=== PATIENT | female | born 1980 | race Caucasian/White ===

== ENCOUNTER 2018-02-24 23:45 | Emergency (ER) | payer SELFPAY ==
[~2018-02-24 23:45] MED LIST: ALBUTEROL17 GM IH; ATIVAN1 MG PO; TOPAMAX50 MG PO
== END 2018-02-24 23:54 | disposition left against medical advice (07) ==
LOC: EME 23:45
DX: Z53.21 Procedure and treatment not carried out due to patient leaving prior to being seen by health care provider (principal)

== ENCOUNTER 2018-02-25 06:16 | Emergency (ER) | payer SELFPAY ==
[~2018-02-25] VITALS: Ht 162.6 cm; Wt 61.8 kg
[2018-02-25 06:19] VITALS: BP 112/76
== END 2018-02-25 06:35 | disposition left against medical advice (07) ==
LOC: EME 06:16
DX: Z53.21 Procedure and treatment not carried out due to patient leaving prior to being seen by health care provider (principal)
CPT/HCPCS: 99281